=== PATIENT | female | born 1990 | race Caucasian/White ===

== ENCOUNTER 2025-02-23 09:38 | Day surgery (SDC) | payer OTHER ==
[2025-02-23] MEDS ORDERED: Acetaminophen 500 MG TAB ONE (09:51)
[2025-02-23] MEDS: Acetaminophen 500 MG TAB PO SCH (09:52)
[2025-02-23] MEDS: Ferumoxytol (NON ERSD) 510 MG in 0.9 % Sodium Chloride 150 ML IVPB SCH (10:34)
[2025-02-23 11:07] VITALS: TEMP 98.2
[2025-02-23 15:59] VITALS: BP 100/56
== END 2025-02-23 15:59 | disposition home or self-care (01) ==
LOC: ONC/OP 09:38
PROVIDERS: ATTEND Family Medicine
DX: O99.019 Anemia complicating pregnancy, unspecified trimester (principal); Z3A.00 Weeks of gestation of pregnancy not specified
CPT/HCPCS: 96365; 96366; Q0138